=== PATIENT | female | born 1950 | race Caucasian/White ===

== ENCOUNTER 2018-10-31 10:34 | Outpatient (CLI) | payer MEDICARE ==
--- NOTE | 2018-10-31 11:57 | RAD ---
LUMBAR SPINE THREE VIEWS: History: 68-year-old female with history of lumbar disc disease and lumbar stenosis, low back pain for several years with bilateral leg pain. FINDINGS: Standing neutral, flexion, and extension lateral views of the lumbar spine were performed. Extensive disc osteophytosis changes are noted. There is retrolisthesis of L3 on L4 without evidence for abnorm al translation between flexion and extension. Multilevel disc osteophytosis, particularly at L2-3 and L3-4. Generalized facet arthrosis. Abdominal aortic calcific changes. IMPRESSION: Lumbar spondylosis with some retrolisthesis of L3 on L4 without abnormal translation between flexion and extension. POS: JENNIFER
--- NOTE | 2018-10-31 12:27 | MRI ---
MRI LUMBAR SPINE WITHOUT CONTRAST: Date: 10/31/18 HISTORY: M51.36. M48.062. Lumbar stenosis. Low back pain. COMPARISON: Radiograph same date. FINDINGS: Aortic contour is nonaneurysmal. No retroperitoneal adenopathy. Multiple T2 hyperintense foci of both kidneys. There is a T1 hyperintense and T2 hypointense mass inferior pole right kidney, likely an ol d hemorrhagic proteinaceous cyst. The conus medullaris terminates near the inferior end plate of L1. No marrow infiltrative process. Mo dic Type I end plate changes at L2-3. The levels are as follows: L1-2: There is a low grade circumferential disc bulge. Associated with the disc bulge are small oste ophytes. Spinal canal not significantly narrowed. No significant neural foraminal narrowing. L2-3: Mild degenerative disc space height loss and circumferential disc osteophyte complex. Moderate facet arthropathy. Mild effacement of the ventral CSF space with spinal canal still measuring over 1 .0 cm. No significant neural foraminal narrowing. L3-4: There is inferior end plate Schmorl's node of L3. There is severe degenerative disc space heig ht loss. No circumferential disc bulge. Spinal canal measures approximately 7.0 mm. Moderate facet hy pertrophic changes. There is mild bilateral neural foraminal narrowing. L4-5: There is moderate degenerative disc space height loss posteriorly with a central annular fissu re. Small bilateral subforaminal and posterior disc osteophyte complexes. There is moderate left and mild right-sided neural foraminal narrowing. Moderate hypertrophic facet changes. L5-S1: Mild posterior degenerative disc space height loss. Small central posterior disc protrusion. Minimal effacement of the ventral CSF space. No significant left and mild right-sided neural foramina l narrowing, although there is abutment of the exiting right L5 nerve root. IMPRESSION: 1. Mild to moderate multilevel spondylosis. 2. Incidental note of hemangioma within the S1 vertebral body, a benign finding. POS: JENNIFER
== END 2018-10-31 10:35 | disposition home or self-care (01) ==
LOC: TBSIIMAG 10:34
PROVIDERS: ATTEND Neurological Surgery
DX: M51.36 Other intervertebral disc degeneration, lumbar region (principal); M48.062 Spinal stenosis, lumbar region with neurogenic claudication; M51.26 Other intervertebral disc displacement, lumbar region; M47.816 Spondylosis without myelopathy or radiculopathy, lumbar region
CPT/HCPCS: 72100; 72148

== ENCOUNTER 2018-12-03 14:05 | Outpatient (CLI) | payer MEDICARE ==
--- NOTE | 2018-12-03 15:35 | RAD ---
LUMBAR SPINE SERIES FOUR VIEWS: FINDINGS: There is a scoliotic change convex to the right. Vertebral bodies maintain normal height. There are d egenerative osteophytes along the course of the spine. There is disc narrowing at L2-3 and L3-4. Ther e also appears to be a slight retrolisthesis of L2 on L3 and L3 on L4. Some of this appearance is pro bably somewhat accentuated by the scoliotic change. Vascular calcifications are noted. IMPRESSION: Arthritic changes of the spine. POS: TPC
== END 2018-12-03 14:06 | disposition home or self-care (01) ==
LOC: TBSIIMAG 14:05
PROVIDERS: ATTEND Neurological Surgery
DX: M47.26 Other spondylosis with radiculopathy, lumbar region (principal)
CPT/HCPCS: 72110

== ENCOUNTER 2019-08-16 10:53 | Outpatient (CLI) | payer MEDICARE ==
--- NOTE | 2019-08-16 13:20 | MMO ---
Bilateral MAMMO Bilat Screen [facility]. CLINICAL HISTORY: Patient is 69 years old and is seen for screening. The patient has no family history of breast cancer. The patient has a history of malignant (generic) at age 62. VIEWS: The views performed were: bilateral craniocaudal with tomosynthesis and bilateral mediolateral oblique with tomosynthesis. FILMS COMPARED: The present examination has been compared to a prior imaging study performed at [facility] on 06/01/2018. This study has been interpreted with the assistance of computer-aided detection. MAMMOGRAM FINDINGS: There are scattered fibroglandular densities. Benign calcifications are noted bilaterally. There are stable post-operative changes. There are no suspicious masses, suspicious calcifications, or new areas of architectural distortion. IMPRESSION: THERE IS NO MAMMOGRAPHIC EVIDENCE OF MALIGNANCY. A ROUTINE FOLLOW-UP MAMMOGRAM IN 1 YEAR IS RECOMMENDED. THE RESULTS OF THIS EXAM WERE SENT TO THE PATIENT. ACR BI-RADS Category 2 - Benign finding MAMMOGRAPHY NOTE: 1. A negative mammogram report should not delay a biopsy if a dominant of clinically suspicious mass is present. 2. Approximately 10% to 15% of breast cancers are not detected by mammography. 3. Adenosis and dense breasts may obscure an underlying neoplasm. Reported by: VIANNEY KOEHLER MD Electonically Signed: [id number]
== END 2019-08-16 10:54 | disposition home or self-care (01) ==
LOC: BICMAMMO 10:53
PROVIDERS: ATTEND Family Medicine
DX: Z12.31 Encounter for screening mammogram for malignant neoplasm of breast (principal); Z80.3 Family history of malignant neoplasm of breast
CPT/HCPCS: 77063; 77067

== ENCOUNTER 2021-01-19 10:25 | Outpatient (CLI) | payer MEDICARE | END 2021-01-19 10:26 | disposition home or self-care (01) | LOC: BICMAMMO 10:25 | PROVIDERS: ATTEND Family Medicine | DX: Z12.31 Encounter for screening mammogram for malignant neoplasm of breast (principal); Z85.3 Personal history of malignant neoplasm of breast; Z98.890 Other specified postprocedural states | CPT/HCPCS: 77063; 77067 ==

== ENCOUNTER 2025-06-04 12:52 | Outpatient (CLI) | payer MEDICARE | END 2025-06-04 12:53 | disposition home or self-care (01) | LOC: BICMAMMO 12:52 | PROVIDERS: ATTEND Family Medicine | DX: Z12.31 Encounter for screening mammogram for malignant neoplasm of breast (principal); M81.0 Age-related osteoporosis without current pathological fracture; M85.852 Other specified disorders of bone density and structure, left thigh; Z85.3 Personal history of malignant neoplasm of breast; Z98.890 Other specified postprocedural states | CPT/HCPCS: 77063; 77067; 77080 ==

== ENCOUNTER 2025-06-06 08:21 | Outpatient (CLI) | payer MEDICARE ==
[2025-06-06 09:16] LABS: Estimated GFR - POC 66.0
== END 2025-06-06 08:22 | disposition home or self-care (01) ==
LOC: CT 08:21
PROVIDERS: ATTEND Family Medicine
DX: N28.1 Cyst of kidney, acquired (principal); K22.89 Other specified disease of esophagus; R91.1 Solitary pulmonary nodule
CPT/HCPCS: 36415; 74170; 82565